=== PATIENT | female | born 1970 | race African-American/Black ===

== ENCOUNTER 2019-07-13 20:21 | Emergency (ER) | payer BC ==
[~2019-07-13] VITALS: Ht 180.3 cm; Wt 78.0 kg
[2019-07-14] MEDS ORDERED: ONDANSETRON HCL 4MG/2ML INJ IV STA (04:13)
[2019-07-14] MEDS ORDERED: MORPHINE SULFATE 4 MG/ML CPJ (NOT FOR IM USE) IV STA (04:13)
[2019-07-14] MEDS ORDERED: FAMOTIDINE 20MG/2ML VIAL IV STA (04:13)
[2019-07-14] MEDS ORDERED: SODIUM CHLORIDE 0.9% 1,000 ML IV ONE (04:13)
[2019-07-14 05:08] LABS: BASOPHILS % 0.4 % (0.0-2.0); HEMATOCRIT. 42.9 % (36.0-48.0); HEMOGLOBIN. 13.8 g/dL (12.0-16.0); MEAN CORPUSCULAR HEMOGLOBIN 25.8 pg (28.0-32.0); MEAN CORPUSCULAR VOLUME 80.4 fL (81.0-99.0); MEAN PLATELET VOLUME 10.4 fl (7.4-10.4); MONOCYTES % 10.1 % (2.0-8.0); NEUTROPHILS % 54.5 % (40.0-76.0); PLATELET 234 x1000/uL (130-400); RED BLOOD CELL COUNT 5.34 mill/uL (4.2-5.4); RED CELL DISTRIBUTION WIDTH 16.6 % (11.6-14.6)
[2019-07-14 07:15] LABS: CHLORIDE 109 mEq/L (98-107)
[2019-07-14 07:55] VITALS: BP 112/76
[2019-07-14] MEDS ORDERED: KETOROLAC 30MG/ML VIAL IV ONE (08:00)
== END 2019-07-14 08:08 | disposition home or self-care (01) ==
LOC: ER 20:21
DX: R10.9 Unspecified abdominal pain (principal); R11.10 Vomiting, unspecified
CPT/HCPCS: 36415; 80053; 81025; 83690; 85025; 96361; 96374; 96375; 99283; J1885; J2270; J2405; J3490; J7030; Z7610